=== PATIENT | female | born 1955 | race Caucasian/White ===

== ENCOUNTER 2022-03-19 06:41 | Day surgery (SDC) | payer MEDICARE ==
[2022-03-19] VITALS (9 sets, daily range): BP systolic 111–140; BP diastolic 49–82
[~2022-03-19] VITALS: Ht 165.1 cm; Wt 79.3 kg
[2022-03-19] MEDS ORDERED: vancomycin 1,500 MG in NS 300ml IV soln IV ONE (07:03)
[2022-03-19] MEDS ORDERED: clindamycin-Cleocin 900mg/D5W 50 ML IV ONE (07:05)
[2022-03-19] MEDS ORDERED: MULT-1219 PO (07:39)
[2022-03-19] MEDS ORDERED: METF-438 PO (07:39)
[2022-03-19] MEDS ORDERED: VENL150C58 PO (07:39)
[2022-03-19] MEDS ORDERED: MAGN200T PO (07:39)
[2022-03-19] MEDS ORDERED: CHOL3000 PO (07:39)
[2022-03-19] MEDS ORDERED: DIGO250T2 PO (07:39)
[2022-03-19] MEDS ORDERED: MUPI22OI30 TOP (07:39)
[2022-03-19] MEDS ORDERED: LEVO100T9 PO (07:39)
[2022-03-19] MEDS ORDERED: TRIA1TAB3 PO (07:39)
[2022-03-19] MEDS ORDERED: ASCO500T19 PO (07:39)
[2022-03-19] MEDS ORDERED: ALPR0.255 PO (07:39)
[2022-03-19] MEDS ORDERED: ASPI-1265 PO (07:39)
[2022-03-19] MEDS ORDERED: normal saline 1,000 ML IV SCH (07:50)
[2022-03-19 08:12] LABS: ALBUMIN 4.3 G/DL (3.4-5.0); ANION GAP 11 (8-16); BLOOD UREA NITROGEN 17 MG/DL (7-18); BUN/CREATININE RATIO 20.5 (6.6-38.0); CALCIUM 9.6 MG/DL (8.5-10.1); CHLORIDE 99 MMOL/L (99-107); CREATININE 0.83 MG/DL (0.40-0.90); GLUCOSE 173 MG/DL (70-104); MAGNESIUM 2.1 MG/DL (1.5-2.4); POTASSIUM 3.9 MMOL/L (3.5-5.1); SODIUM 139 MMOL/L (135-145); TOTAL CARBON DIOXIDE 28.7 MMOL/L (24-32); eGFR 69 ML/MIN
[2022-03-19 08:15] LABS: BASOPHILS # (AUTO) 0.1 X10'3 (0-0.2); BASOPHILS % (AUTO) 0.6 % (0-1); EOSINOPHILS # (AUTO) 0.1 X10'3 (0-0.9); HEMATOCRIT 41.3 % (35.0-45.0); HEMOGLOBIN 13.5 g/dl (12.0-16.0); LYMPHOCYTES # (AUTO) 2.3 X10'3 (1.1-4.8); LYMPHOCYTES % (AUTO) 22.7 % (21-51); MEAN CORPUSCULAR HEMOGLOBIN 26.1 PG (27.0-31.0); MEAN CORPUSCULAR HGB CONC 32.7 g/dL (33.0-36.5); MEAN CORPUSCULAR VOLUME 79.9 FL (78-98); MEAN PLATELET VOLUME 7.4 FL (7.4-10.4); MONOCYTES # (AUTO) 0.6 X10'3 (0-0.9); MONOCYTES % (AUTO) 6.1 % (2-12); NEUTROPHILS # (AUTO) 7.1 X10'3 (1.8-7.7); NEUTROPHILS % (AUTO) 69.6 % (42-75); PLATELET COUNT 344 X10'3 (140-440); RED BLOOD COUNT 5.18 X10'6 (4.20-5.60); RED CELL DISTRIBUTION WIDTH 16.1 % (11.5-14.5); WHITE BLOOD COUNT 10.2 X10'3 (4.5-11.0)
[2022-03-19] MEDS ORDERED: vancomycin 1,000mg inj ONE (11:31)
[2022-03-19] MEDS ORDERED: LIDOCAINE 2% w/EPI 1:100:000 30mL injection MDV**cath lab 1 only ONE (11:31)
[2022-03-19] MEDS ORDERED: iohexol 350 MG/ML 50ML vial IV ONE ×2 (11:31→13:13)
[2022-03-19] MEDS ORDERED: fentaNYL/PF 50MCG/1 ML 2ML syringe ONE ×2 (11:31→12:53)
[2022-03-19] MEDS ORDERED: midazolam 1 mg/ML 2ml injection ONE ×4 (11:31→13:17)
[2022-03-19] MEDS ORDERED: proCHLORperazine 10 MG/2 ml inj ONE (13:13)
[2022-03-19] MEDS ORDERED: morphine 2 MG/ML inj. syringe ONE (13:41)
[2022-03-19] MEDS ORDERED: HYDROcodone/acetaminophen 10/325mg tab PO PRN (15:15)
[2022-03-19] MEDS ORDERED: HYDROcodone/acetaminophen 5mg/325mg tablet PO PRN (15:15)
[2022-03-19] MEDS ORDERED: normal saline 1000ml 1,000 ML IV SCH (15:15)
== END 2022-03-19 17:00 | disposition home or self-care (01) ==
LOC: SSTAY O 06:41
PROVIDERS: ATTEND Internal Medicine Cardiovascular Disease
DX: I44.7 Left bundle-branch block, unspecified (principal); I42.9 Cardiomyopathy, unspecified; I42.0 Dilated cardiomyopathy; I11.0 Hypertensive heart disease with heart failure; I50.22 Chronic systolic (congestive) heart failure; E11.9 Type 2 diabetes mellitus without complications; Z90.710 Acquired absence of both cervix and uterus; Z90.49 Acquired absence of other specified parts of digestive tract; Z98.890 Other specified postprocedural states; Z83.3 Family history of diabetes mellitus; Z82.49 Family history of ischemic heart disease and other diseases of the circulatory system; Z88.6 Allergy status to analgesic agent; Z79.82 Long term (current) use of aspirin; Z79.899 Other long term (current) drug therapy; Z88.0 Allergy status to penicillin
CPT/HCPCS: 33225; 33249; 36415; 71045; 80048; 82948; 83735; 85025; 85610; 93005; 99152; 99153; C1769; C1882; C1894; J2250; J2270; J3010; J3370; J3490; J7030; J7040; Q9967; A4565; A4620; C1895; C1898; C1990; J0780

== ENCOUNTER 2024-08-26 13:25 | Emergency (ER) | payer MEDICARE ==
[~2024-08-26] VITALS: Ht 165.1 cm; Wt 95.2 kg
[~2024-08-26 13:25] MED LIST: ALPR0.255 PO; ASCO500T19 PO; ASPI-1265 PO; CHOL3000 PO; DIGO250T2 PO; LEVO100T9 PO; MAGN200T PO; METF-438 PO; MULT-1219 PO; MUPI22OI30 TOP; TRIA1TAB3 PO; VENL150C58 PO
[2024-08-26 14:02] VITALS: BP 104/56; PULSE 89; RESP 18; TEMP 97.3; O2SAT 98
[2024-08-26] MEDS ORDERED: CIPR7.5D7 RIGHT EAR (15:09)
[2024-08-26] MEDS: Cipro HC otic suspension 10ML bottle RIGHT EAR ONE (15:26)
== END 2024-08-26 15:12 | disposition home or self-care (01) ==
LOC: ER 13:26
DX: T16.1XXA Foreign body in right ear, initial encounter (principal); H60.91 Unspecified otitis externa, right ear; Z88.0 Allergy status to penicillin; Z88.5 Allergy status to narcotic agent; W44.F4XA Insect entering into or through a natural orifice, initial encounter; Y93.89 Activity, other specified; Y92.89 Other specified places as the place of occurrence of the external cause; Y99.8 Other external cause status
CPT/HCPCS: 69200; 99284; J7030; Z7610